=== PATIENT | male | born 1985 | race Caucasian/White ===

== ENCOUNTER 2018-06-21 15:39 | Emergency (ER) | payer OTHER ==
[2018-06-21] MEDS ORDERED: NA CHLORIDE 0.9% 1,000 ML ONE (16:09)
[2018-06-21] MEDS ORDERED: LORazepam 2 MG/ML VIAL ONE (16:33)
[2018-06-21 16:38] LABS: Absolute Lymphocytes (CBC) 0.9 K/uL (0.7-4.9); Absolute Monocytes 0.5 K/uL (0.1-1.3); Absolute Neutrophil 5.5 K/uL (1.8-8.0); Basophils % 0.3 % (0-1.3); Eosinophils % 0.3 % (0-4.4); Hematocrit 46.8 % (39.6-49.0); Lymphocytes % 12.3 % (15.3-44.8); MPV 8.4 fL (7.6-11.3); Monocytes % 7.1 % (3.3-12.3); RBC Red Blood Cell Count 5.16 M/uL (4.33-5.43)
[2018-06-21 16:42] LABS: Protime INR 0.94
[2018-06-21 17:03] LABS: ALT/SGPT 22 U/L (12-78); AST/SGOT 15 U/L (15-37); Albumin 4.2 g/dL (3.4-5.0); Alkaline Phosphatase 69 U/L (45-117); BUN Blood Urea Nitrogen 15 mg/dL (7-18); Bicarbonate 23 mmol/L (21-32); Bilirubin Direct 0.2 mg/dL (0-0.2); Bilirubin Total 0.5 mg/dL (0.2-1.0); Glucose Level 135 mg/dL (74-106); Potassium 3.6 mmol/L (3.5-5.1); Protein, Total 7.5 g/dL (6.4-8.2); Sodium Level 140 mmol/L (136-145)
[2018-06-21 17:22] LABS: Barbiturates NEGATIVE (NEGATIVE); Benzodiazepines NEGATIVE (NEGATIVE); Cocaine NEGATIVE (NEGATIVE); METHAMPHETAM NEGATIVE (NEGATIVE); Methadone NEGATIVE (NEGATIVE); Opiates NEGATIVE (NEGATIVE); Phencyclidine NEGATIVE (NEGATIVE); THC Cannibis NEGATIVE (NEGATIVE)
[2018-06-21] MEDS ORDERED: FAMOTIDINE 20 MG/2 ML VIAL IV ONE (17:26)
--- NOTE | 2018-06-21 17:50 | RAD REPORT ---
EXAM DESCRIPTION: RAD - Chest Single View - 06/21/2018 4:15 pm CLINICAL HISTORY: Cough, hypertension, upper extremity numbness and tingling COMPARISON: May 2012 TECHNIQUE: AP portable chest image was obtained 1610 hour . FINDINGS: Lung volumes are low and there is respiratory motion degradation. No acute lung parenchyma l process seen. Heart and vasculature are normal. No measurable pleural effusion and no pneumothorax. No acute bony abnormality seen. No acute aortic findings suspected. IMPRESSION: No acute cardiopulmonary process.
--- NOTE | 2018-06-21 17:51 | RAD REPORT ---
EXAM DESCRIPTION: CT - Angio Aorta For Dissection - 06/21/2018 5:44 pm CLINICAL HISTORY: Chest pain, shortness of breath, upper extremity numbness and tingling COMPARISON: None. TECHNIQUE: Dynamically enhanced 3 mm thick images of the chest, abdomen, and upper pelvis were obtai edilberto during administration of approximately 150mL Isovue 370 IV contrast. Sagittal and coronal reconst ruction images were generated using MIP and reviewed. Exam utilizes a protocol to evaluate entire cou rse of the aorta. All CT scans are performed using dose optimization technique as appropriate and may include automated exposure control or mA/KV adjustment according to patient size. FINDINGS: Aorta is normal in diameter with no dissection or other acute aortic findings. Reconstruct ion images show no significant findings. Pulmonary arteries are normal as well. No cardiomegaly, pericardial thickening or pericardial effusio n. No mass or infiltrate in the lung parenchyma. No pleural thickening, pleural effusion or pneumothorax . No abnormal mediastinal or hilar mass or lymphadenopathy seen. No chest wall mass or abnormal axillar y lymphadenopathy. Celiac, SMA and renal arteries show no suspicious findings. Solid abdominal viscera and bowel show no significant findings. No mass or abnormal lymphadenopathy. No free air, free fluid or inflammatory stranding. No urinary bladder abnormality. IMPRESSION: Negative CT scan of the aorta. No other significant findings on chest, abdomen and upper pelvis examination.
--- NOTE | 2018-06-21 18:00 | ER ---
Nurse's Notes [facility] Name: Wilfredo Lacey Age: 32 yrs Sex: Male : 1985 Arrival Date: 06/21/2018 Time: 15:41 Bed 30 Private MD: Diagnosis: Palpitations;Anxiety disorder, unspecified;Chest pain, unspecified Presentation: 06/21 15:44 Presenting complaint: Patient states: my hands and feet feel weird, I get clammy, I la1 have been under a lot of stress lately, I used to be on sertraline for anxiety but have not taken any in 3 months. Transition of care: patient was not received from another setting of care. Onset of symptoms was June 21, 2018. Risk Assessment: Do you want to hurt yourself or someone else? Patient reports no desire to harm self or others. Initial Sepsis Screen: Does the patient meet any 2 criteria? No. Patient's initial sepsis screen is negative. Does the patient have a suspected source of infection? No. Patient's initial sepsis screen is negative. Care prior to arrival: None. 15:44 Method Of Arrival: Ambulatory la1 15:44 Acuity: JUAN 3 la1 Historical: - Allergies: 15:44 PENICILLINS; la1 - PMHx: 15:44 None; la1 - Immunization history:: Adult Immunizations up to date. - Social history:: Smoking status: Patient/guardian denies using tobacco. - Ebola Screening: : No symptoms or risks identified at this time. - Family history:: not pertinent. Screenin:05 Abuse screen: Denies threats or abuse. Denies injuries from another. Nutritional mg2 screening: No deficits noted. Tuberculosis screening: No symptoms or risk factors identified. Fall Risk IV access (20 points). Assessment: 16:31 General: Appears in no apparent distress. comfortable, Behavior is cooperative, mg2 anxious. Pain: Complains of pain in chest Pain does not radiate. Pain currently is 1 out of 10 on a pain scale. Quality of pain is described as pressure, Pain began gradually, last night Is intermittent. Neuro: Level of Consciousness is awake, alert, obeys commands, Oriented to person, place, time, situation. Neuro: Reports anxiety. Cardiovascular: Capillary refill < 3 seconds Patient's skin is warm and dry. Respiratory: Airway is patent Respiratory effort is even, unlabored, Respiratory pattern is regular, symmetrical. GI: No signs and/or symptoms were reported involving the gastrointestinal system. : No signs and/or symptoms were reported regarding the genitourinary system. EENT: No signs and/or symptoms were reported regarding the EENT system. Derm: Skin is intact, is healthy with good turgor, Skin is pink, warm \T\ dry. normal. Musculoskeletal: Circulation, motion, and sensation intact. Capillary refill < 3 seconds. 17:40 Reassessment: patient sent to ct scan. Patient states feeling better. Patient states mg2 symptoms have improved. 18:21 Reassessment: patient for possible discharge after all the labs are back. mg2 Vital Signs: 15:46 BP 150 / 100; Pulse 122; Resp 18; Temp 97.6; Pulse Ox 98% on R/A; Weight 129.27 kg; la1 Height 5 ft. 11 in. (180.34 cm); 16:30 BP 152 / 89; Pulse 95; Resp 18; Pulse Ox 100% on R/A; mg2 17:25 BP 136 / 77; Pulse 80; Resp 18; Pulse Ox 100% on R/A; mg2 18:24 Pulse 78; Resp 18; Pulse Ox 100% on R/A; Pain 0/10; mg2 19:15 BP 120 / 68; Pulse 80; Resp 18; Pulse Ox 100% on R/A; Pain 0/10; mg2 15:46 Body Mass Index 39.75 (129.27 kg, 180.34 cm) la1 ED Course: 15:41 Patient arrived in ED. as 15:46 Triage completed. la1 15:46 Arm band placed on left wrist. la1 15:47 Tristan Chávez MD is Attending Physician. [facility] 15:54 Jesus Santoro, JOYCE is Primary Nurse. mg2 16:01 Bed in low position. Call light in reach. Side rails up X 1. Pillow given. Cardiac jp3 monitor on. Pulse ox on. NIBP on. 16:05 Patient has correct armband on for positive identification. Door closed. Warm blanket mg2 given. 16:13 X-ray completed. Portable x-ray completed in exam room. Patient tolerated procedure sg4 well. 16:14 EKG done, by ED staff, reviewed by Tristan Chávez MD. jp3 16:15 Chest Single View XRAY In Process Unspecified. EDMS 16:33 No provider procedures requiring assistance completed. Inserted saline lock: 20 gauge mg2 in right antecubital area, using aseptic technique. Blood collected. 17:44 CT Aorta for Dissection In Process Unspecified. EDMS 19:31 IV discontinued, intact, bleeding controlled, No redness/swelling at site. Pressure mg2 dressing applied. Administered Medications: 16:30 Drug: NS 0.9% 1000 ml Route: IV; Rate: 1 bolus; Site: right antecubital; mg2 17:00 Follow up: Response: No adverse reaction; IV Status: Completed infusion mg2 16:30 Drug: Ativan 1 mg Route: IVP; Site: right antecubital; mg2 18:22 Follow up: Response: No adverse reaction; Marked relief of symptoms mg2 17:24 Drug: Pepcid 20 mg Route: IVP; Site: right antecubital; mg2 18:23 Follow up: Response: No adverse reaction; Marked relief of symptoms mg2 Outcome: 17:59 Discharge ordered by MD. wong 19:32 Discharged to home ambulatory, with family. mg2 19:32 Condition: good 19:32 Discharge instructions given to patient, family, Instructed on discharge instructions, follow up and referral plans. medication usage, Demonstrated understanding of instructions, follow-up care, medications, Prescriptions given X 1. 19:33 Patient left the ED. mg2 Signatures: Dispatcher [employer] EDMS Tristan Chávez MD MD cha Martinez, Amelia as Attema, Lee RN RN la1 Jesus Santoro RN RN mg2 Ovi Aiken Susana sg4
--- NOTE | 2018-06-21 18:00 | EDPHYS ---
[facility] Name: Wilfredo Lacey Age: 32 yrs Sex: Male : 1985 Arrival Date: 06/21/2018 Time: 15:41 Bed 30 Private MD: ED Physician Tristan Chávez HPI: 06/21 17:19 This 32 yrs old Male presents to ER via Ambulatory with complaints of Doesn't judith Feel Right. 17:19 The patient presents to the emergency department with depression. Onset: The judith symptoms/episode began/occurred 2 day(s) ago. Past psychiatric history: Prior diagnosis: DEPRESSION, ANXIETY. The patient or guardian reports chest pain that is located primarily in the anterior chest wall, bilaterally. anxiety. The pain does not radiate. Associated signs and symptoms: Pertinent positives; anxiety. Historical: - Allergies: 15:44 PENICILLINS; la1 - PMHx: 15:44 None; la1 - Immunization history:: Adult Immunizations up to date. - Social history:: Smoking status: Patient/guardian denies using tobacco. - Ebola Screening: : No symptoms or risks identified at this time. - Family history:: not pertinent. ROS: 17:19 Constitutional: Negative for fever, chills, and weight loss, Eyes: Negative for injury, judith pain, redness, and discharge, ENT: Negative for injury, pain, and discharge, Neck: Negative for injury, pain, and swelling, Respiratory: Negative for shortness of breath, cough, wheezing, and pleuritic chest pain, Abdomen/GI: Negative for abdominal pain, nausea, vomiting, diarrhea, and constipation, Back: Negative for injury and pain, : Negative for injury, bleeding, discharge, and swelling, MS/Extremity: Negative for injury and deformity, Skin: Negative for injury, rash, and discoloration, Neuro: Negative for headache, weakness, numbness, tingling, and seizure, Allergy/Immunology: Negative for hives, rash, and allergies, Endocrine: Negative for neck swelling, polydipsia, polyuria, polyphagia, and marked weight changes, Hematologic/Lymphatic: Negative for swollen nodes, abnormal bleeding, and unusual bruising. 17:19 Cardiovascular: Positive for palpitations. 17:19 Back: Positive for pain at rest, of the thoracic area. 17:19 Neuro: Positive for weakness. 17:19 Psych: Positive for anxiety. Exam: 17:19 Constitutional: This is a well developed, well nourished patient who is awake, alert, judith and in no acute distress. Head/Face: Normocephalic, atraumatic. Eyes: Pupils equal round and reactive to light, extra-ocular motions intact. Lids and lashes normal. Conjunctiva and sclera are non-icteric and not injected. Cornea within normal limits. Periorbital areas with no swelling, redness, or edema. ENT: Nares patent. No nasal discharge, no septal abnormalities noted. Tympanic membranes are normal and external auditory canals are clear. Oropharynx with no redness, swelling, or masses, exudates, or evidence of obstruction, uvula midline. Mucous membranes moist. Neck: Trachea midline, no thyromegaly or masses palpated, and no cervical lymphadenopathy. Supple, full range of motion without nuchal rigidity, or vertebral point tenderness. No Meningismus. Chest/axilla: Normal chest wall appearance and motion. Nontender with no deformity. No lesions are appreciated. Cardiovascular: Regular rate and rhythm with a normal S1 and S2. No gallops, murmurs, or rubs. Normal PMI, no JVD. No pulse deficits. Respiratory: Lungs have equal breath sounds bilaterally, clear to auscultation and percussion. No rales, rhonchi or wheezes noted. No increased work of breathing, no retractions or nasal flaring. Abdomen/GI: Soft, non-tender, with normal bowel sounds. No distension or tympany. No guarding or rebound. No evidence of tenderness throughout. Back: No spinal tenderness. No costovertebral tenderness. Full range of motion. Skin: Warm, dry with normal turgor. Normal color with no rashes, no lesions, and no evidence of cellulitis. Neuro: Awake and alert, GCS 15, oriented to person, place, time, and situation. Cranial nerves II-XII grossly intact. Motor strength 5/5 in all extremities. Sensory grossly intact. Cerebellar exam normal. Normal gait. 17:19 Musculoskeletal/extremity: Extremities: all appear grossly normal, with no appreciated pain with palpation, ROM: full active range of motion, full passive range of motion, Circulation is intact in all extremities. Sensation intact. Compartment Syndrome exam of affected extremity: is normal. DVT Exam: No signs of deep vein thrombosis. no pain, no swelling, no tenderness, negative Homans' sign noted on exam, no appreciated bluish discoloration, no erythema, no increased warmth. Vital Signs: 15:46 BP 150 / 100; Pulse 122; Resp 18; Temp 97.6; Pulse Ox 98% on R/A; Weight 129.27 kg; la1 Height 5 ft. 11 in. (180.34 cm); 16:30 BP 152 / 89; Pulse 95; Resp 18; Pulse Ox 100% on R/A; mg2 17:25 BP 136 / 77; Pulse 80; Resp 18; Pulse Ox 100% on R/A; mg2 18:24 Pulse 78; Resp 18; Pulse Ox 100% on R/A; Pain 0/10; mg2 19:15 BP 120 / 68; Pulse 80; Resp 18; Pulse Ox 100% on R/A; Pain 0/10; mg2 15:46 Body Mass Index 39.75 (129.27 kg, 180.34 cm) la1 MDM: 15:47 Patient medically screened. [facility] 17:22 Data reviewed: vital signs, nurses notes, lab test result(s), EKG, radiologic studies, [facility] CT scan, plain films. 06/21 15:49 Order name: Acetaminophen; Complete Time: 17:07 [facility] 06/21 15:49 Order name: Basic Metabolic Panel; Complete Time: 17:07 [facility] 06/21 15:49 Order name: CBC with Diff; Complete Time: 17:07 [facility] 06/21 15:49 Order name: ETOH Level; Complete Time: 17:07 [facility] 06/21 15:49 Order name: Hepatic Function; Complete Time: 17:07 [facility] 06/21 15:49 Order name: PT-INR; Complete Time: 17:07 [facility] 06/21 15:49 Order name: Ptt, Activated; Complete Time: 17:07 [facility] 06/21 15:49 Order name: Salicylate; Complete Time: 17:07 [facility] 06/21 15:49 Order name: Urine Drug Screen; Complete Time: 17:34 [facility] 06/21 15:49 Order name: Chest Single View XRAY; Complete Time: 17:59 [facility] 06/21 17:10 Order name: Troponin I; Complete Time: 18:52 [facility] 06/21 17:10 Order name: Lipase; Complete Time: 18:52 [facility] 06/21 17:23 Order name: TSH [facility] 06/21 17:31 Order name: Urine Dipstick--Ancillary (enter results) 06/21 15:49 Order name: EKG; Complete Time: 15:50 [facility] 06/21 15:49 Order name: EKG - Nurse/Tech; Complete Time: 16:06 [facility] 06/21 15:49 Order name: IV Saline Lock; Complete Time: 16:30 [facility] 06/21 15:49 Order name: Labs collected and sent; Complete Time: 16:30 [facility] 06/21 15:49 Order name: Urine Dipstick-Ancillary (obtain specimen); Complete Time: 17:11 [facility] 06/21 17:10 Order name: CT Aorta for Dissection; Complete Time: 17:59 [facility] Administered Medications: 16:30 Drug: NS 0.9% 1000 ml Route: IV; Rate: 1 bolus; Site: right antecubital; mg2 17:00 Follow up: Response: No adverse reaction; IV Status: Completed infusion mg2 16:30 Drug: Ativan 1 mg Route: IVP; Site: right antecubital; mg2 18:22 Follow up: Response: No adverse reaction; Marked relief of symptoms mg2 17:24 Drug: Pepcid 20 mg Route: IVP; Site: right antecubital; mg2 18:23 Follow up: Response: No adverse reaction; Marked relief of symptoms mg2 Disposition: 06/21/18 17:59 Discharged to Home. Impression: Palpitations, Anxiety disorder, unspecified, Chest pain, unspecified. - Condition is Stable. - Discharge Instructions: Panic Attacks, Nonspecific Chest Pain, Palpitations, Nonspecific Chest Pain, [id number], Panic Attacks, [id number], Aspirin and Your Heart, Palpitations, [id number]. - Prescriptions for Xanax 0.5 mg Oral Tablet - take 1 tablet by ORAL route every 8 hours As needed; 20 tablet. - Medication Reconciliation Form, Thank You Letter, Antibiotic Education, Prescription Opioid Use form. - Follow up: Private Physician; When: 2 - 3 days; Reason: Recheck today's complaints, Continuance of care, Re-evaluation by your physician. - Problem is new. - Symptoms have improved. Signatures: Dispatcher [employer] EDTristan Lopez MD MD cha Attema, Lee RN RN la1 Jesus Sanotro RN RN mg2 Corrections: (The following items were deleted from the chart) 19:33 17:59 06/21/2018 17:59 Discharged to Home. Impression: Palpitations; Anxiety disorder, mg2 unspecified; Chest pain, unspecified. Condition is Stable. Discharge Instructions: Panic Attacks, Nonspecific Chest Pain, Palpitations, Nonspecific Chest Pain, [id number], Panic Attacks, [id number], Aspirin and Your Heart, Palpitations, [id number]. Prescriptions for Xanax 0.5 mg Oral Tablet - take 1 tablet by ORAL route every 8 hours As needed; 20 tablet. and Forms are Medication Reconciliation Form, Thank You Letter, Antibiotic Education, Prescription Opioid Use. Follow up: Private Physician; When: 2 - 3 days; Reason: Recheck today's complaints, Continuance of care, Re-evaluation by your physician. Problem is new. Symptoms have improved. judith
[2018-06-21 18:50] LABS: Lipase 89 U/L (73-393); Troponin I < 0.02 ng/mL (0.0-0.045)
[2018-06-21 20:16] VITALS: TEMP 97.6
[2018-06-21 20:17] VITALS: O2SAT 100
[2018-06-21 20:21] VITALS: BP 120/68
[2018-06-21 20:36] LABS: Urine Blood NEGATIVE (NEG); Urine Glucose NEGATIVE (NEG); Urine Protein NEGATIVE (NEG); Urine Specific Gravity 1.015 (1.005-1.030); Urine pH 7.5 (5.0-7.0)
--- NOTE | 2018-06-24 11:31 | EKG ---
Test Date: 2018-06-21 Test Time: 15:56:46 Nursery Nurse: [facility] MEASUREMENT RESULTS: Intervals: Rate: 112 NH: 194 QRSD: 80 QT: 306 QTc: 417 [place]: P: 59 NH: 194 QRS: 13 T: 37 INTERPRETIVE STATEMENTS: Sinus tachycardia Possible Left atrial enlargement Borderline ECG Compared to ECG 03/24/2012 16:55:35 Sinus rhythm no longer present Electronically Signed On 06-22-18 10:49:35 CDT by Gucci Contreras
== END 2018-06-21 19:33 | disposition home or self-care (01) ==
LOC: ER 15:39
DX: F41.9 Anxiety disorder, unspecified (principal); R07.9 Chest pain, unspecified; Z88.0 Allergy status to penicillin
CPT/HCPCS: 36415; 71045; 71275; 74175; 80048; 80076; 80307; 80320; 80329; 81003; 83690; 84443; 84484; 85025; 85610; 85730; 93005; 96374; 96375; 99285; J7030; Q9967

== ENCOUNTER 2021-11-29 19:22 | Observation (INO) | payer BC, OTHER ==
--- OUTSIDE RECORDS SUMMARY | 2021-11-29 19:25 | XMS REPORT | Continuity of Care Document ---
:1985 Author Organization [facility] t Address [address] [place] [address] Dr. Ma [address] [place] [id number] Care Team Providers Name Role Phone Unavailable Unavailable Unavailable Problems This patient has no known problems. Allergies, Adverse Reactions, Alerts This patient has no known allergies or adverse reactions. Medications This patient has no known medications. Procedures This patient has no known procedures. Results This patient has no known results.
--- NOTE | 2021-11-29 20:43 | RAD REPORT ---
EXAM DESCRIPTION: RAD - Chest Single View - 11/29/2021 8:38 pm CLINICAL HISTORY: PAIN.. COMPARISON: Chest Single View dated 06/21/2018; CHEST PA AND LAT 2 VIEW dated 05/19/2012; CHEST SINGLE V IEW dated 03/24/2012 FINDINGS: Lines: None. Lungs: No evidence of edema or pneumonia. Pleural: No significant pleural effusions or pneumothorax. Cardiac: The heart size is within normal limits. Mediastinum: Within normal limits. Bones: No acute fractures. Other: None IMPRESSION: No acute cardiopulmonary disease.
[2021-11-29 20:45] LABS: Absolute Lymphocytes (CBC) 0.9 K/uL (0.7-4.9); Hematocrit 42.5 % (39.6-49.0); Lymphocytes % 9.5 % (15.3-44.8); MCV 92.2 fL (80-100); MPV 7.3 fL (7.6-11.3); RBC Red Blood Cell Count 4.61 M/uL (4.33-5.43)
[2021-11-29] MEDS ORDERED: NA CHLORIDE 0.9% 1,000 ML ONE ×2 (20:50→22:17)
[2021-11-29 20:55] LABS: Protime INR 1.04
[2021-11-29 21:20] LABS: Albumin 4.4 g/dL (3.4-5.0); Bilirubin Direct 0.2 mg/dL (0-0.2); Bilirubin Total 0.8 mg/dL (0.2-1.0); CKMB Creatine Kinase MB 8.1 ng/mL (1.0-3.6); Potassium 3.7 mmol/L (3.5-5.1); Protein, Total 7.7 g/dL (6.4-8.2)
--- NOTE | 2021-11-29 21:39 | EDPHYS ---
Physician Documentation [facility] Name: Wilfredo Lacey Age: 36 yrs Sex: Male : 1985 Arrival Date: 11/29/2021 Time: 19:25 Bed 23 Private MD: ED Physician Eze Marroquin HPI: 11/29 23:47 This 36 yrs old Male presents to ER via Wheelchair with complaints of Fainting, kb Dizziness. 23:47 The patient has experienced syncope. Onset: The symptoms/episode began/occurred today. kb Duration: The patient has had multiple episodes. Context: occurred at home, outdoors, occurred while the patient was standing, Just prior to the episode the patient experienced dizziness. Associated injury: The patient did not suffer any apparent associated injury. Associated signs and symptoms: Pertinent positives: dizziness. Current symptoms: Currently, the patient is not experiencing any symptoms, the patient feels back to baseline, no decreased level of consciousness, no confusion, no dysphasia, no headache, no paralysis, no visual changes. The patient has not experienced similar symptoms in the past. The patient has not recently seen a physician. Pt reports he jogged about 4 miles, then did some labor intensive work outdoors. He was feeling faint afterwards so he drank water and gatorage that made him feel better. Afterwards he went to a restaurant and drank about 6 beers. He started to feel bad again so he walked outside and had a syncopal episode. Went home and had a second syncopal episode [facility]: - Home Meds: 19:41 sertraline 100 mg oral tab 1 tab once daily [Active]; atorvastatin 40 mg oral tab kb3 [Active]; olmesartan 20 mg oral tab [Active]; metoprolol tartrate 50 mg Oral tab [Active]; - PMHx: 19:42 Hypertensive disorder; Anxiety; kb3 - Immunization history:: Adult Immunizations up to date, Client reports having NOT received the Covid vaccine. Last tetanus immunization: unknown. - Social history:: Smoking status: Patient denies any tobacco usage or history of. ROS: 23:46 Constitutional: Negative for fever, chills, and weight loss. kb 23:46 Neuro: Positive for dizziness, syncope. 23:46 All other systems are negative. Exam: 20:02 ECG was reviewed by the Attending Physician. kb 23:46 Constitutional: This is a well developed, well nourished patient who is awake, alert, kb and in no acute distress. Head/Face: Normocephalic, atraumatic. Eyes: Pupils equal round and reactive to light, extra-ocular motions intact. Lids and lashes normal. Conjunctiva and sclera are non-icteric and not injected. Cornea within normal limits. Periorbital areas with no swelling, redness, or edema. ENT: Moist Mucous membranes Cardiovascular: Regular rate and rhythm with a normal S1 and S2. No gallops, murmurs, or rubs. No pulse deficits. Respiratory: Respirations even and unlabored. No increased work of breathing. Talking in full sentences Abdomen/GI: Soft, non-tender. No distention MS/ Extremity: Pulses equal, no cyanosis. Neurovascular intact. Full, normal range of motion. Neuro: Awake and alert, GCS 15, oriented to person, place, time, and situation. Moves all extremities. Normal gait. Psych: Awake, alert, with orientation to person, place and time. Behavior, mood, and affect are within normal limits. 23:46 Skin: injury, abrasion(s), small abrasion noted, of the right knee. Vital Signs: 19:35 BP 94 / 62; Pulse 78; Resp 20; Temp 97.5; Pulse Ox 100% ; Weight 136.08 kg; Height 5 kb3 ft. 11 in. (180.34 cm); Pain 4/10; 19:55 BP 120 / 76; Pulse 64; Resp 18; Pulse Ox 99% on R/A; kl 19:58 BP 120 / 76 RA Supine (auto/lg); Pulse 68 RA; ds4 20:01 BP 113 / 67 RA Sitting (auto/lg); Pulse 78 MON; ds4 20:09 BP 110 / 72 RA Standing (auto/lg); Pulse 82 MON; ds4 21:17 BP 111 / 70; Pulse 85; Resp 19 S; Pulse Ox 100% on R/A; ha1 23:26 BP 128 / 78; Pulse 77; Resp 17; Pulse Ox 99% ; ha1 19:35 Body Mass Index 41.84 (136.08 kg, 180.34 cm) kb3 MDM: 19:49 Patient medically screened. kb 23:45 Data reviewed: vital signs, nurses notes. Data interpreted: Pulse oximetry: on room air kb is 99 %. Interpretation: normal. Counseling: I had a detailed discussion with the patient and/or guardian regarding: the historical points, exam findings, and any diagnostic results supporting the discharge/admit diagnosis, lab results, radiology results, the need for further work-up and treatment in the hospital. Physician consultation: Herberth Meneses MD was contacted at 22:20, regarding admission, to the telemetry unit. patient's condition, and will see patient in inpatient room. 11/29 19:59 Order name: Basic Metabolic Panel; Complete Time: 21:28 kb 11/29 19:59 Order name: CBC with Diff; Complete Time: 20:51 kb 11/29 19:59 Order name: CPK; Complete Time: 21:28 kb 11/29 19:59 Order name: Ckmb; Complete Time: 21:28 kb 11/29 19:59 Order name: Hepatic Function; Complete Time: 21:28 kb 11/29 19:59 Order name: Lipase; Complete Time: 21:28 kb 11/29 19:59 Order name: Magnesium; Complete Time: 21:28 kb 11/29 19:59 Order name: Protime (+inr); Complete Time: 20:56 kb 11/29 19:59 Order name: Ptt, Activated; Complete Time: 20:56 kb 11/29 22:18 Order name: Urine Dipstick-Ancillary; Complete Time: 22:20 EDMS 11/29 22:36 Order name: SARS RAPID bb 11/29 23:35 Order name: SARS-COV-2 Antigen Rapid; Complete Time: 23:36 EDMS 11/30 02:52 Order name: CBC with Automated Diff; Complete Time: 08:00 EDMS 11/30 03:29 Order name: Comprehensive Metabolic Panel; Complete Time: 08:00 EDMS 11/29 19:59 Order name: EKG; Complete Time: 20:01 kb 11/29 19:59 Order name: Cardiac monitoring; Complete Time: 20:33 kb 11/29 19:59 Order name: EKG - Nurse/Tech; Complete Time: 20:33 kb 11/29 19:59 Order name: IV Saline Lock; Complete Time: 20:57 kb 11/29 19:59 Order name: Labs collected and sent; Complete Time: 20:57 kb 11/29 19:59 Order name: NPO; Complete Time: 20:57 kb 11/29 19:59 Order name: Chest Single View XRAY; Complete Time: 20:45 kb 11/30 03:29 Order name: Creatine Phosphokinase; Complete Time: 08:00 EDMS 11/30 03:29 Order name: CKMB Creatine Kinase MB; Complete Time: 08:00 EDMS 11/30 03:29 Order name: Lipid Profile; Complete Time: 08:00 EDMS 11/30 03:29 Order name: Magnesium; Complete Time: 08:00 EDMS 11/30 05:15 Order name: US; Complete Time: 08:00 EDMS 11/30 10:32 Order name: Basic Metabolic Panel; Complete Time: 11:42 EDMS 11/30 11:30 Order name: Creatine Phosphokinase; Complete Time: 11:42 EDMS 11/29 19:59 Order name: O2 Per Protocol; Complete Time: 20:33 kb 11/29 19:59 Order name: O2 Sat Monitoring; Complete Time: 20:33 kb 11/29 19:59 Order name: Urine Dipstick-Ancillary (obtain specimen); Complete Time: 22:19 kb 11/29 19:59 Order name: Orthostatics; Complete Time: 20:08 kb EC:02 Rate is 66 beats/min. Rhythm is regular. QRS Austin is Normal. ND interval is normal at kb 170 msec. QRS interval is normal at 86 msec. QT interval is normal at 404 msec. Administered Medications: 20:30 Drug: NS 0.9% 1000 ml Route: IV; Rate: 1000 ml; Site: left antecubital; kl 23:19 Follow up: Response: No adverse reaction; IV Status: Completed infusion; IV Intake: ha1 1000ml 22:19 Drug: NS 0.9% 1000 ml Route: IV; Rate: 1000 ml; Site: left antecubital; ha1 11/30 12:41 Follow up: Response: No adverse reaction; IV Status: Completed infusion; IV Intake: ll1 1000ml Disposition: 12/01 07:34 Co-signature as Attending Physician, Eze Marroquin MD I agree with the assessment and kdr plan of care. Disposition Summary: 11/29/21 21:37 Hospitalization Ordered Hospitalization Status: Observation kb Provider: Evin Renteria Condition: Stable kb Problem: new kb Symptoms: are unchanged kb Bed/Room Type: Standard kb Location: [facility] ER HOLD(11/29/21 22:49) cg Room Assignment: ERHOLD-(11/29/21 22:49) Diagnosis - Rhabdomyolysis kb - Acute kidney failure, unspecified kb - Syncope kb Forms: - Medication Reconciliation Form kb - SBAR form kb Signatures: Dispatcher [employer] EDND Liz Curtis FNP-C FNP-Shireen Chatman RN RN Eze Marie MD MD kdr Page, Corey, PA PA cp Garcia, Cindy, RN RN cg Debby Cleveland RN RN ha1 Ivanna Carroll RN RN kb3 Kendra Bradford RN ll1 Corrections: (The following items were deleted from the chart) 11/29 22:49 21:37 Telemetry/MedSurg (observation) kb 22:49 21:37 kb cg
--- NOTE | 2021-11-29 21:39 | ER ---
Nurse's Notes [facility] Name: Wilfredo Lacey Age: 36 yrs Sex: Male : 1985 Arrival Date: 11/29/2021 Time: 19:25 Bed 23 Private MD: Diagnosis: Rhabdomyolysis;Acute kidney failure, unspecified;Syncope Presentation: 11/29 19:35 Chief complaint: Patient states: Pt reports working out at noon, returning home and did kb3 not feel well. States he drank "a lot of water" and felt better. Drank several beers afterwards, went to a restaurant and began feeling unwell again. States she felt how, like he was going to pass out, went outside and had a syncopal episode. States he refused EMS on scene, went home and had another syncopal episode. Coronavirus screen: Vaccine status: Patient reports being unvaccinated. Client denies travel out of the [place] in the last 14 days. Ebola Screen: Patient negative for fever greater than or equal to 101.5 degrees Fahrenheit, and additional compatible Ebola Virus Disease symptoms Patient denies exposure to infectious person. Patient denies travel to an Ebola-affected area in the 21 days before illness onset. No symptoms or risks identified at this time. Initial Sepsis Screen: Does the patient meet any 2 criteria? No. Patient's initial sepsis screen is negative. Does the patient have a suspected source of infection? No. Patient's initial sepsis screen is negative. Risk Assessment: Do you want to hurt yourself or someone else? Patient reports no desire to harm self or others. Onset of symptoms was November 29, 2021 at 12:00. 19:35 Method Of Arrival: Wheelchair kb3 19:35 Acuity: JUAN 3 kb3 Triage Assessment: 19:42 General: Appears in no apparent distress. Behavior is calm, cooperative. Pain: kb3 Complains of pain in anterior aspect of left lateral abdomen Pain does not radiate. Pain currently is 4 out of 10 on a pain scale. Historical: - Home Meds: 19:41 sertraline 100 mg oral tab 1 tab once daily [Active]; atorvastatin 40 mg oral tab kb3 [Active]; olmesartan 20 mg oral tab [Active]; metoprolol tartrate 50 mg Oral tab [Active]; - PMHx: 19:42 Hypertensive disorder; Anxiety; kb3 - Immunization history:: Adult Immunizations up to date, Client reports having NOT received the Covid vaccine. Last tetanus immunization: unknown. - Social history:: Smoking status: Patient denies any tobacco usage or history of. Screenin:55 Abuse screen: Denies threats or abuse. Nutritional screening: No deficits noted. kl Tuberculosis screening: No symptoms or risk factors identified. Fall Risk Fall in past 12 months (25 points). No secondary diagnosis (0 pts). IV access (20 points). Ambulatory Aid- None/Bed Rest/Nurse Assist (0 pts). Gait- Normal/Bed Rest/Wheelchair (0 pts) Mental Status- Oriented to own ability (0 pts). Total Robles Fall Scale indicates High Risk Score (45 or more points). Fall prevention measures have been instituted. Side Rails Up X 2 Placed Close to Nursing Station Frequent Obs/Assessments Occuring Family Present and informed to notify staff if the need to leave the bedside. Assessment: 19:51 General: Appears in no apparent distress. comfortable, Behavior is cooperative, anxious.kl 19:53 Neuro: No deficits noted. Level of Consciousness is awake, alert, obeys commands, kl Oriented to person, place, time, situation. Cardiovascular: Heart tones S1 S2 Rhythm is sinus rhythm. Respiratory: No deficits noted. Airway is patent Trachea midline Respiratory effort is even, unlabored, Respiratory pattern is regular, symmetrical. GI: No deficits noted. No signs and/or symptoms were reported involving the gastrointestinal system. : No deficits noted. No signs and/or symptoms were reported regarding the genitourinary system. Derm: Skin is diaphoretic, Wound noted Other: abrasion to right knee and elbow. Vital Signs: 19:35 BP 94 / 62; Pulse 78; Resp 20; Temp 97.5; Pulse Ox 100% ; Weight 136.08 kg; Height 5 kb3 ft. 11 in. (180.34 cm); Pain 4/10; 19:55 BP 120 / 76; Pulse 64; Resp 18; Pulse Ox 99% on R/A; kl 19:58 BP 120 / 76 RA Supine (auto/lg); Pulse 68 RA; ds4 20:01 BP 113 / 67 RA Sitting (auto/lg); Pulse 78 MON; ds4 20:09 BP 110 / 72 RA Standing (auto/lg); Pulse 82 MON; ds4 21:17 BP 111 / 70; Pulse 85; Resp 19 S; Pulse Ox 100% on R/A; ha1 23:26 BP 128 / 78; Pulse 77; Resp 17; Pulse Ox 99% ; ha1 19:35 Body Mass Index 41.84 (136.08 kg, 180.34 cm) kb3 ED Course: 19:25 Patient arrived in ED. ja2 19:41 Triage completed. kb3 19:42 Arm band placed on right wrist. kb3 19:49 Liz Curtis FNP-C is PHCP. kb 19:49 Eze Marroquin MD is Attending Physician. kb 20:40 Chest Single View XRAY In Process Unspecified. EDMS 21:37 Evin Renteria MD is Hospitalizing Provider. kb 22:08 Debby Cleveland, JOYCE is Primary Nurse. ha1 23:19 SARS RAPID Sent. ha1 23:20 No provider procedures requiring assistance completed. Patient admitted, IV remains in ha1 place. 23:23 Patient has correct armband on for positive identification. Placed in gown. Bed in low ha1 position. Call light in reach. Side rails up X 1. Administered Medications: 20:30 Drug: NS 0.9% 1000 ml Route: IV; Rate: 1000 ml; Site: left antecubital; kl 23:19 Follow up: Response: No adverse reaction; IV Status: Completed infusion; IV Intake: ha1 1000ml 22:19 Drug: NS 0.9% 1000 ml Route: IV; Rate: 1000 ml; Site: left antecubital; ha1 11/30 12:41 Follow up: Response: No adverse reaction; IV Status: Completed infusion; IV Intake: ll1 1000ml Medication: 11/29 23:23 VIS not applicable for this client. ha1 Intake: 23:19 IV: 1000ml; Total: 1000ml. ha1 11/30 12:41 IV: 1000ml; Total: 2000ml. ll1 Outcome: 11/29 21:37 Decision to Hospitalize by Provider. kb 23:20 Admitted to ER Hold. Please see [facility] for further documentation. ha1 23:20 Condition: stable 23:20 Discharge instructions given to patient, family, Instructed on the need for admit, Demonstrated understanding of instructions. 11/30 12:42 Patient left the ED. ll1 Signatures: Dispatcher [employer] EDMS Liz Curtis, SEO MARKETING SPECIALIST-C SEO MARKETING SPECIALIST-Shireen Chatman, RN RN Easton Mckeon ds4 Kendra Bradford RN RN ll1 Blessing Kate2 Debby Cleveland RN RN ha1 Ivanna Carroll RN RN kb3 Corrections: (The following items were deleted from the chart) 11/29 23: 23:15 BP 128 / 96; Pulse 99bpm; Resp 19bpm; Spontaneous; Pulse Ox 95% RA; ha1 ha1 23: 22:30 BP 137 / 117; Pulse 104bpm; Resp 20bpm; Pulse Ox 98% RA; ha1 ha1
[2021-11-29 22:17] LABS: Urine Blood Negative (Negative); Urine Glucose Negative (Negative); Urine Protein Trace (Negative); Urine Specific Gravity 1.025 (1.005-1.030); Urine pH 5.5 (5.0-7.0)
[2021-11-29 23:35] LABS: SARS-CoV-2 Antigen Rapid Res Negative (Negative)
[2021-11-30] MEDS ORDERED: ONDANSETRON 4 MG/2 ML VIAL IV PRN (00:10)
[2021-11-30] MEDS ORDERED: ACETAMINOPHEN 500 MG TAB PO PRN (00:10)
[2021-11-30] MEDS: Ringers Lactate 1,000 ML IV SCH ×2 (00:10→08:10)
[2021-11-30] MEDS ORDERED: Ringers Lactate 1,000 ML IV ONE ×2 (00:29→09:36)
[2021-11-30 00:46] VITALS: BMI 41.8
[2021-11-30 02:40] LABS: Hematocrit 38.6 % (39.6-49.0); Lymphocytes % 12.6 % (15.3-44.8); MPV 7.8 fL (7.6-11.3); RBC Red Blood Cell Count 4.29 M/uL (4.33-5.43)
[2021-11-30 03:26] LABS: Albumin 3.7 g/dL (3.4-5.0); Bilirubin Total 0.7 mg/dL (0.2-1.0); Magnesium 1.9 mg/dL (1.8-2.4); Protein, Total 6.6 g/dL (6.4-8.2)
[2021-11-30 03:29] LABS: CKMB Creatine Kinase MB 10.4 ng/mL (1.0-3.6)
--- NOTE | 2021-11-30 05:15 | RAD REPORT ---
EXAM DESCRIPTION: US - Renal Ultrasound-Complete - 11/30/2021 1:05 am CLINICAL HISTORY: Acute renal failure COMPARISON: None FINDINGS: The right kidney measures 11 cm with a normal echotexture. The left kidney measures 11 cm with a normal echotexture. Hydronephrosis is not seen. No gross abnormality of bladder IMPRESSION: Unremarkable renal ultrasound.
[2021-11-30] MEDS ORDERED: HEPARIN 5000 UNIT/ML 1 ML VIAL ONE (07:35)
[2021-11-30] MEDS ORDERED: HEPARIN 5000 UNIT/ML 1 ML VIAL SQ SCH (09:00)
[2021-11-30 10:32] LABS: Potassium 3.5 mmol/L (3.5-5.1)
--- NOTE | 2021-11-30 10:43 | P.PN ---
Brief renal note (full consult note to follow): Stage II YNES 2nd to volume depletion, relative hypotension, concurrent ARB use, mild rhabdo -resolving with IVF hydration. Renal u/s remarkable. Pt would like to go home, will check orthostatic vitals. If those are negative, pt should be ok to go home off anti hypertensives and f/u in clinic. Pt able to continue hydration at home and avoid strenuous exercise
[2021-11-30 12:38] VITALS: TEMP 98.9
--- NOTE | 2021-11-30 13:36 | EKG ---
Test Date: 2021-11-29 Test Time: 19:53:35 Pipe Line Repairer: NICCI MEASUREMENT RESULTS: Intervals: Rate: 66 UT: 170 QRSD: 86 QT: 386 QTc: 404 Acme: P: 3 UT: 170 QRS: 27 T: 38 INTERPRETIVE STATEMENTS: Normal sinus rhythm Normal ECG Compared to ECG 06/21/2018 15:56:46 Sinus tachycardia no longer present Electronically Signed On 11-30-21 13:34:34 CDT by Mehrdad Carter
--- NOTE | 2021-11-30 14:49 | P.CNS ---
Date of Consult: 11/30/21 Reason for Consult: YNESethankita Chief Complaint: Syncope History of Present Illness: Pt is a 36 yo male with hx of anxiety on a SSRI agent, a hx of pre-HTN or Stage I HTN who reports he was put on Metoprolol about a year ago more for tachycardia in the setting of anxiety and more recently on Olmesartan 1.5 mo ago in the setting of SBP in the 130s and some DBP in the 90s. He reports initially tolerating taking both meds but was able to tell a change. He reports yesterday starting out the day doing vigorous exercise and continued outdoor work but was hydrating well. He did feel a bit lightheaded but it was later in the day that he experienced some near syncope or syncope episode with falls. He presented to the ER where post hydration he immediately felt better. Renal service was consulted given renal insufficiency on admission. Allergies Penicillins Allergy (Verified 03/24/12 15:48) Rash Home Medications: Sertraline [Zoloft*] 75 mg PO DAILY 11/30/21 Review of Systems General: Weakness Eyes: Other ENT: Unremarkable Respiratory: Unremarkable Cardiovascular: Light Headedness, Unremarkable Gastrointestinal: Unremarkable Genitourinary: Unremarkable Musculoskeletal: Unremarkable Integumentary: Unremarkable Neurological: Unremarkable Lymphatics: Unremarkable Physical Examination Temp Pulse Resp BP Pulse Ox 98.9 F 87 18 125/84 97 11/30/21 12:00 11/30/21 12:00 11/30/21 12:00 11/30/21 12:00 11/30/21 12:00 General: Alert, In no apparent distress, Oriented x3 HEENT: Atraumatic, Normocephalic, Mucous membr. moist/pink Neck: Supple Respiratory: Clear to auscultation bilaterally, Normal air movement Cardiovascular: No edema, Regular rate/rhythm, Normal S1 S2 Gastrointestinal: Soft and benign, Non-distended, No tenderness Musculoskeletal: No clubbing, No swelling, No contractures Integumentary: No rashes, No breakdown Neurological: Normal speech, Normal tone, Normal affect Laboratory Data (last 24 hrs) 11/29/21 20:37: PT 11.4, INR 1.04, APTT 25.7 11/29/21 20:37: WBC 9.50, Hgb 15.0, Hct 42.5, Plt Count 196 11/29/21 20:37: Sodium 133 L, Potassium 3.7, BUN 23 H, Creatinine 2.32 H, Glucose 105, Magnesium 2.0, Total Bilirubin 0.8, AST 59 H, ALT 35, Alkaline Phosphatase 62, Lipase 86 Conclusions/Impression: 1. Abnormal results of kidney function studies 2. Stage II YNES, resolving 3. Volume depletion 4. Syncope 5. Hypotension 2nd to medication 5. Acute rhabdomyolysis 2nd to vigorous exercise -YNES 2nd to volume depletion, relative hypotension, concurrent ARB use, mild rhabdo -resolving with IVF hydration and improvement in BP -Cont to hold ARB and anti hypertensives on discharge -Cont to hydrate well orally on discharge and avoid strenuous exercise -Avoid NSAIDs -Renal u/s reviewed and unremarkable -Will have pt maintain BP log and have pt follow up post discharge in clinic Eamon Rodriguez MD, ALEKS
--- NOTE | 2021-11-30 20:01 | SS ---
Date of Discharge: 11/30/2021 The patient was admitted to the hospital on 11/29. After presenting to the emergency room, he stated that he had been working out exceptional amount over the past few days and especially the day of adm ission, some of which was outside. He began to feel lightheaded and then he felt like he had a synco pe episode, although there was no complete LOC. He was brought to the emergency room at which time r habdomyolysis was diagnosed and the significant fact is the patient had an BECKY inhibitor added to his regimen approximately 6 weeks ago. He has been on beta claudia primarily for anxiety scenario with rapid heartbeat. His blood pressure was borderline in the past, especially the diastolic. There has been no recent change. When he was seen in the ER, he had elevated creatinine, elevated CK, and he was started on IV fluids. Within hours, his creatinine improved somewhat. CK remained elevated. He was seen by Nephrology this morning at which time they felt it was okay for him to go home to [facility] with hydration, hold off on both his beta claudia and BECKY and follow up with him and me as far as t he blood work is concerned. He was also instructed to try and decrease it as much as possible on the caffeine and alcohol, which is present to some extent. However, he states it is not an unusual amou nt as of late. The only thing unusual was his intensity of his workout, so he was therefore instruct ed to stay away from heat and workouts until his CK drops back down to a reasonable level. His stati ns are also held. He will continue on his sertraline and actually it could be increased. He is curr ently at 75, increased to 100 as necessary for his anxiety situations, so he can avoid the beta block ers and BECKY. He was discharged in good condition. Final Diagnoses: Acute rhabdomyolysis, generalized anxiety disorder by history and hypertension, dexter corbin. HR/MODL Voice ID: [id number] Report ID: [id number]
[2021-12-01 14:45] VITALS: O2SAT 100
[2021-12-01 15:35] VITALS: BP 110/72
== END 2021-11-30 12:39 | disposition home or self-care (01) ==
LOC: ER 19:22 → ERHOLD 21:51 → INTOOBSV 21:51 → ERHOLD 11-30 12:11
PROVIDERS: ADMIT Family Medicine; ATTEND Family Medicine
DX: M62.82 Rhabdomyolysis (principal); N17.9 Acute kidney failure, unspecified; E86.9 Volume depletion, unspecified; I95.2 Hypotension due to drugs; F41.9 Anxiety disorder, unspecified; I10 Essential (primary) hypertension; Z88.0 Allergy status to penicillin; Z20.822 Contact with and (suspected) exposure to COVID-19
CPT/HCPCS: 96361; 93005; 85025 ×2; 80048 ×2; 36415; 83735 ×2; 82550 ×3; 85610; 80061; 80076; 85730; 81003; 82553 ×2; 83690; 80053; 71045; 76770; 96360; 99285; 87811; J1644; J7120 ×2; J7030 ×2; G0378 ×2